=== PATIENT | male | born 1965 | race Caucasian/White ===

== ENCOUNTER 2022-02-28 16:05 | Emergency (ER) | payer OTHER, SELFPAY ==
--- NOTE | ~2022-02-28 | XR_ITS ---
EXAMINATION: XR SHOULDER, LEFT CLINICAL INFORMATION: Pain COMPARISON: None TECHNIQUE: Three views of the left shoulder. FINDINGS: There is mild acromioclavicular and glenohumeral osteoarthritis. No fracture. Alignment is anatomic. Soft tissues are normal with no abnormal calcifications. XR/XR shoulder LT min 2V IMPRESSION: Mild degenerative changes of the shoulder.
--- NOTE | ~2022-02-28 | XR_ITS ---
EXAMINATION: XR chest 1V CLINICAL INFORMATION: Reason for Exam dyspnea COMPARISON: None TECHNIQUE: One view of the chest FINDINGS: Low lung volumes with bronchovascular crowding. No focal consolidation. No pneumothorax or pleural effusion. Normal cardiomediastinal silhouette. XR/XR chest 1V Impression: * Low lung volumes with bronchovascular crowding. No focal consolidation.
[2022-02-28 16:30] VITALS: BP 140/90; PULSE 96; O2SAT 99; BMI 24.2
[2022-02-28 16:59] VITALS: BP 119/80; PULSE 102; RESP 18; TEMP 36.7; O2SAT 98
--- NOTE | 2022-02-28 17:00 | ED.EXTPRO ---
HPI - Extremity Problem General Chief complaint: Extremity Injury, Upper Stated complaint: L Shoulder pain Time Seen by Provider: 02/28/22 16:19 Source: patient and EMS Mode of arrival: EMS Limitations: other (very poor historian) History of Present Illness HPI Narrative: 56 yo male very poor historian most history gathered from the medications he is on and small bits of information he provided but appears to have a history of paraplegia from a fall a few years ago - chest down, chronic garcia, CVA with ?L sided deficits - garbled speech, hard of hearing, pressure ulcers, HTN, HLD, chronic pain issues he reports suboxone doesn't work for him, intermittent UTIs most recently states he is on some antibiotic for 5 days from either [facility] or [facility] (garcia changed then), on eliquis but he isn't sure why called 911 today because he cannot care for himself anymore and he has chronic L shoulder pain x 4 months. EMS note they get called to his house a lot and his sister who used to care for him recently had a massive stroke and she is no longer able to care for him. Patient states he wants to go to a nursing agusto and does not want to go home again. MD Complaint: extremity pain Onset (ago): month(s) (4) Pain Consistency: constant Location: left and upper extremity (shoulder) Quality: aching, dull and constant Radiation: none Relieving factors: immobilization Exacerbating factors: range of motion and palpation Associated symptoms: denies other symptoms Context: other (cannot tell me if he injured it states it just hurts then tells me something happened at [facility] ) Related Data Allergies Allergy/AdvReac Type Severity Reaction Status Date / Time No Known Allergies Allergy Verified 02/28/22 16:54 Review of Systems Review of Systems: Constitutional : no Fever, No Chills, No Fatigue, No Malaise ENT/Mouth : No sore throat, No Rhinorrhea Eyes: No Eye Pain, No Swelling, No Redness Cardiovascular : No Chest Pain, No SOB, No Dyspnea on Exertion, No Orthopnea, No Edema, No Palpitations Respiratory : No Cough, No Sputum, No Wheezing Gastrointestinal : No Nausea, No Vomiting, No Diarrhea, No Constipation, No abdominal Pain, No Hematochezia, No Melena Genitourinary : No Dysuria, No Urinary Frequency, No Hematuria, Musculoskeletal : pos joint pain, No Myalgias, No Joint Swelling Skin : No Skin Lesions, No rash Neuro : No Weakness, No Numbness, No Dizziness, No Headache Psych : No Anxiety/Panic, No Depression Heme/Lymph: No Bruising, No Bleeding,No Lymphadenopathy Endocrine : No Polyuria, No Polydipsia All other systems reviewed and are negative [facility] Past Medical History Source: old records reviewed Medical History Acute CVA (cerebrovascular accident) Anticoagulated Asthma Chronic indwelling Garcia catheter Chronic pain CVA (cerebral vascular accident) Enterococcus faecalis infection HTN (hypertension) Hyperlipidemia Paraplegia Pulmonary embolism Sacral ulcer Social History Social History Advance Directives: No Advance Directives Information Provided: No Physical Exam Vital Signs: Vital Signs: Last Vital Signs Temp 97.6 F 02/28/22 19:58 Pulse 107 H 03/01/22 00:00 Resp 20 03/01/22 00:00 BP 118/85 03/01/22 00:00 Pulse Ox 97 03/01/22 00:00 O2 Del Method 03/01/22 00:00 BMI result Body Mass Index 24.2 Appearance: Alert. Oriented X3. No acute distress. Hard of hearing Eyes: Pupils equal, round and reactive to light. ENT: Pharynx dry MM - mild Neck: Normal inspection. Neck supple. CVS: Normal heart rate and rhythm. Pulses normal. Respiratory: No respiratory distress. Breath sounds diminished at bases. Abdomen: Soft and non-tender. Garcia in place states it is 5 days old appears clean Back: please see picture below for shallow uninfected sacral ulcer Skin: Skin warm and dry. pale skin color. Normal skin turgor. Extremities: No lower extremity edema. has ulcer on left heel and left francisco please see pictures below Neuro: Oriented X 3. Very poor historian. very hard of hearing, speech garbled at times, contracted legs, paraplegic chest down, L shoulder reports pain no obvious deformity noted, hand is contracted states he has a prior stroke Course Course Course Narrative: admitted to [facility] for shoulder pain leg wounds dyspnea 02/20 - 02/25 found to have trace pericardial effusion leg wounds - completed 7 day course of daptomycin for prior VRE wound infection tachycardia - ECHO done EF 40% but no further interventions needed put back on DOAC trace trivial pericardial effusion no GWMA tachycardia attributed to pain in L shoulder - not felt to be osteo after workup including MRI of cspine area chronic inflammation Jose DC home on 02/25 with outpatient follow up completed therapies while in hospital has VNA at home Dyspnea felt to be underlying COPD. no acute findings on xrays or labs Patient placed in physician observation at 628pm The indication for observation is that the patient needs more time for CM to aid in placement, did refuse at [facility] yesterday for placement. At this time the patient is currently medically cleared, lungs clear, CV RRR, abd nontender, neuro at baseline. MDM - Extremity (Nontraumatic) MDM Narrative Medical decision making narrative: 56 yo male with hx of parapelgia, PE on eliquis, chronic pain, chronic wounds with hx of VRE, chronic garcia in place, L shoulder pain recently admitted to [facility] 02/20-02/25 seen for dyspnea/elevated troponin with negative workup including ECHO and L shoulder pain felt to be MSK in nature. Completed 7 day course of daptomycin for prior VRE culture of wounds. He has new garcia in place. His wounds do not appear infected today we placed new coverings on them. His main complaint today again is that he has chronic shoulder pain - xrays and labs ordered. PO oxycodone for pain. He also wants to go to a SNF. Once medically cleared will refer to CM. Lab Data Result diagrams: 02/28/22 17:56 02/28/22 17:56 Labs: Lab Results 02/28/22 02/28/22 02/28/22 Range/Units 17:56 17:56 17:56 WBC 9.1 (4.8-10.8) X10*3/uL RBC 4.16 L (4.60-5.80) X10*6/uL Hgb 10.3 L (14.0-18.0) g/dl Hct 32.8 L (42.0-52.0) % MCV 78.8 L (80.0-98.0) fL MCH 24.8 L (27.0-33.0) pg MCHC 31.4 (31.0-36.0) g/dl RDW 18.5 H (11.0-16.0) % Plt Count 397 (160-400) X10*3/uL MPV 9.6 (9.4-12.4) fL Immature Gran % (Auto) 0.6 H (0.0-0.4) % Neut % (Auto) 59.5 (45-73) % Lymph % (Auto) 18.6 L (20-40) % Forrest % (Auto) 12.1 H (2-11) % Eos % (Auto) 8.4 H (0-4) % Baso % (Auto) 0.8 (0-2) % Lymph # (Auto) 1.7 (1.2-4.9) X10*3/uL Forrest # (Auto) 1.1 (0.1-1.2) X10*3/uL Eos # (Auto) 0.8 H (0.0-0.4) X10*3/uL Baso # (Auto) 0.1 (0.0-0.2) X10*3/uL Abs Immat Gran (auto) 0.05 H (0.00-0.03) X10*3/uL Absolute Neuts (auto) 5.4 (2.0-8.3) x10*3/uL Absolute Nucleated RBC 0.000 (0.0-0.012) X10*3/uL Nucleated RBC % (auto) 0.0 (0.0-0.2) /100WBC PT 14.1 H (10.0-13.1) SEC INR 1.2 H (0.9-1.1) Sodium 139 (135-145) mmol/L Potassium 3.8 (3.3-5.1) mmol/L Chloride 107 (96-108) mmol/L Carbon Dioxide 21 L (22-29) mmol/L Anion Gap 15 (12-20) BUN 19 H (9-16) mg/dL Creatinine 0.73 (0.5-1.4) mg/dL Estim Creat Clear Calc 104.3 Estimated GFR > 60 Random Glucose 109 (60-115) mg/dL Calcium 9.2 (8.4-10.2) mg/dL Magnesium 2.1 (1.6-2.6) mg/dL Total Bilirubin 0.5 (0.0-1.0) mg/dL Direct Bilirubin 0.2 (0.0-0.5) mg/dL AST 12 (5-37) U/L ALT 9 (0-40) U/L Alkaline Phosphatase 99 (39-117) U/L Total Protein 8.4 H (6.5-8.0) g/dL Albumin 4.0 (3.5-5.0) g/dL Urine Opiates Screen (Not Detect) Urine Fentanyl Screen (Not Detect) Ur Barbiturates Screen (Not Detect) Ur Phencyclidine Scrn (Not Detect) Ur Amphetamines Screen (Not Detect) U Benzodiazepines Scrn (Not Detect) Urine Cocaine Screen (Not Detect) U Marijuana (THC) Screen (Not Detect) COVID-19 (LYLY) (Negative) COVID-19 Clin Com 02/28/22 02/28/22 Range/Units 17:56 18:00 WBC (4.8-10.8) X10*3/uL RBC (4.60-5.80) X10*6/uL Hgb (14.0-18.0) g/dl Hct (42.0-52.0) % MCV (80.0-98.0) fL MCH (27.0-33.0) pg MCHC (31.0-36.0) g/dl RDW (11.0-16.0) % Plt Count (160-400) X10*3/uL MPV (9.4-12.4) fL Immature Gran % (Auto) (0.0-0.4) % Neut % (Auto) (45-73) % Lymph % (Auto) (20-40) % Forrest % (Auto) (2-11) % Eos % (Auto) (0-4) % Baso % (Auto) (0-2) % Lymph # (Auto) (1.2-4.9) X10*3/uL Forrest # (Auto) (0.1-1.2) X10*3/uL Eos # (Auto) (0.0-0.4) X10*3/uL Baso # (Auto) (0.0-0.2) X10*3/uL Abs Immat Gran (auto) (0.00-0.03) X10*3/uL Absolute Neuts (auto) (2.0-8.3) x10*3/uL Absolute Nucleated RBC (0.0-0.012) X10*3/uL Nucleated RBC % (auto) (0.0-0.2) /100WBC PT (10.0-13.1) SEC INR (0.9-1.1) Sodium (135-145) mmol/L Potassium (3.3-5.1) mmol/L Chloride (96-108) mmol/L Carbon Dioxide (22-29) mmol/L Anion Gap (12-20) BUN (9-16) mg/dL Creatinine (0.5-1.4) mg/dL Estim Creat Clear Calc Estimated GFR Random Glucose (60-115) mg/dL Calcium (8.4-10.2) mg/dL Magnesium (1.6-2.6) mg/dL Total Bilirubin (0.0-1.0) mg/dL Direct Bilirubin (0.0-0.5) mg/dL AST (5-37) U/L ALT (0-40) U/L Alkaline Phosphatase (39-117) U/L Total Protein (6.5-8.0) g/dL Albumin (3.5-5.0) g/dL Urine Opiates Screen Not Detected (Not Detect) Urine Fentanyl Screen Not Detected (Not Detect) Ur Barbiturates Screen Not Detected (Not Detect) Ur Phencyclidine Scrn Not Detected (Not Detect) Ur Amphetamines Screen Not Detected (Not Detect) U Benzodiazepines Scrn Not Detected (Not Detect) Urine Cocaine Screen Not Detected (Not Detect) U Marijuana (THC) Screen Not Detected (Not Detect) COVID-19 (LYLY) Negative (Negative) COVID-19 Clin Com See Note ECG Data Attestation EKG: I personally reviewed and interpreted this ECG as follows: ECG interpretation date: 02/28/22 ECG interpretation time: 17:44 Interpretation: Rate:98 Rhythm: NSR Edmond: normal Normal P waves. Normal JONAS. Normal QRS complex. ST T wave : normal no PEARL qTC: normal prior studies: no acute ischemia The study has been interpreted contemporaneously by me. Discharge Plan Discharge Clinical Impression: Left shoulder pain Qualifiers: Chronicity: chronic Qualified Code(s): M25.512 - Pain in left shoulder Patient Disposition: Still a Patient
--- NOTE | 2022-02-28 17:11 | PC.NURSE ---
Pt.'s linens changed and wounds examined with EVARISTO June and Kasey Longoria MD. Bed sores/pressure wounds noted to coccyx, left francisco and posterior medial right heel. Dressings applied to all three wounds.
--- NOTE | 2022-02-28 17:15 | ECG_ITS ---
Test Reason : LEFT SIDED SHOULDER PAIN Blood Pressure : / mmHG Vent. Rate : 098 BPM Atrial Rate : 098 BPM P-R Int : 148 ms QRS Dur : 082 ms QT Int : 356 ms P-R-T Axes : 081 018 017 degrees QTc Int : 454 ms Normal sinus rhythm Normal ECG When compared with ECG of 25-OCT-2001 15:26, Nonspecific T wave abnormality now evident in Anterior leads Referred By: Jaclyn Longoria Electronically Signed By:Javier Wade
[2022-02-28 18:00] VITALS: BP 140/90; PULSE 98; RESP 14; O2SAT 100
[2022-02-28 18:00] LABS: MANUAL DIFF FLAG NO
[2022-02-28 18:03] LABS: Basophils Absolute Auto 0.1 X10*3/uL (0.0-0.2); Basophils Percent Auto 0.8 % (0-2); Eosinophils Absolute Auto 0.8 X10*3/uL (0.0-0.4); Eosinophils Percent Auto 8.4 % (0-4); Hematocrit 32.8 % (42.0-52.0); Hemoglobin 10.3 g/dl (14.0-18.0); Imm Gran Abs Auto 0.05 X10*3/uL (0.00-0.03); Imm Gran Pct Auto 0.6 % (0.0-0.4); Lymphocytes Absolute Auto 1.7 X10*3/uL (1.2-4.9); Lymphocytes Percent Auto 18.6 % (20-40); Mean Corpuscular HGB Conc 31.4 g/dl (31.0-36.0); Mean Corpuscular Hemoglobin 24.8 pg (27.0-33.0); Mean Corpuscular Volume 78.8 fL (80.0-98.0); Mean Platelet Volume 9.6 fL (9.4-12.4); Monocytes Absolute Auto 1.1 X10*3/uL (0.1-1.2); Monocytes Percent Auto 12.1 % (2-11); Neutrophils Absolute Auto 5.4 x10*3/uL (2.0-8.3); Neutrophils Percent Auto 59.5 % (45-73); Platelet Count 397 X10*3/uL (160-400); Red Blood Count 4.16 X10*6/uL (4.60-5.80); Red Cell Distribution Width 18.5 % (11.0-16.0); White Blood Count 9.1 X10*3/uL (4.8-10.8)
[2022-02-28 18:11] LABS: INTERNATIONAL NORM RATIO 1.2 (0.9-1.1); Prothrombin Time 14.1 SEC (10.0-13.1)
[2022-02-28 18:18] LABS: COVID-19 Test Negative (Negative)
[2022-02-28 18:25] LABS: Alanine Aminotransferase 9 U/L (0-40); Alkaline Phosphatase 99 U/L (39-117); Anion Gap 15 (12-20); Aspartate Amino Transferase 12 U/L (5-37); Bilirubin Direct 0.2 mg/dL (0.0-0.5); Bilirubin Total 0.5 mg/dL (0.0-1.0); Blood Urea Nitrogen 19 mg/dL (9-16); Calcium 9.2 mg/dL (8.4-10.2); Carbon Dioxide 21 mmol/L (22-29); Chloride 107 mmol/L (96-108); Creatinine Clr Calc Pharmacy 104.3; Estimated Glomerular Filt Rate > 60; Glucose Random 109 mg/dL (60-115); Magnesium 2.1 mg/dL (1.6-2.6); Potassium 3.8 mmol/L (3.3-5.1); Sodium 139 mmol/L (135-145); Total Protein 8.4 g/dL (6.5-8.0)
[2022-02-28 18:26] LABS: Amphetamine Screen Urine Not Detected (Not Detect); Barbiturates, Urine Not Detected (Not Detect); Benzodiazepines Screen Urine Not Detected (Not Detect); Cannabinoid Screen Urine Not Detected (Not Detect); Cocaine Screen Urine Not Detected (Not Detect); Fentanyl, urine Not Detected (Not Detect); Opiate Screen Urine Not Detected (Not Detect); Phencyclidine Screen Urine Not Detected (Not Detect)
[2022-02-28] MEDS: oxyCODONE HCl Immed Release 5 MG TABLET PO (19:08)
[2022-02-28 19:58] VITALS: BP 128/84; PULSE 99; RESP 18; TEMP 36.4; O2SAT 96
--- NOTE | 2022-02-28 23:19 | PC.NURSE ---
pt complains of R shoulder and reports pain level of 10; explained to pt that he was not due for pain medication as he was given it at around 1900 per OCT, pt was offered tylenol and he refused
[2022-03-01] VITALS: BP 118/85; PULSE 107; RESP 20; O2SAT 97
[2022-03-01] MEDS: oxyCODONE HCl Immed Release 5 MG TABLET PO ×3 (01:09→12:23)
--- NOTE | 2022-03-01 01:13 | PC.NURSE ---
administered oxycodone 5 mg PRN medication for shoulder pain rated at a level of 10 for pain reported by pt
[2022-03-01 06:00] VITALS: BP 123/66; PULSE 110; RESP 18; O2SAT 96
--- NOTE | 2022-03-01 06:49 | PC.NURSE ---
administered oxycodone PRN per OCT, pt states being in constant pain only getting little relief from PRN meds
--- NOTE | 2022-03-01 07:48 | PC.NURSE ---
Patient is in bed awake and eating breakfast.
[2022-03-01 09:33] VITALS: BP 116/76; PULSE 110; RESP 16; TEMP 36.9; O2SAT 95
--- NOTE | 2022-03-01 10:19 | PHA.MEDREC ---
Pharmacy Consult ? Medication Reconciliation Pharmacy has completed the medication reconciliation. Utilized list from last hospital stay at [facility] (02/25) and claim history as pt is not a good historian per note
--- NOTE | 2022-03-01 11:58 | MHC.CM.ED ---
Received case management consult overnight. Patient came to the ER due to shoulder pain. Patient found to have multiple wounds and require possible STR placement for management. Attempted to meet with patient in regards to discharge planning. Patient was slow to respond. Patient has a history of being paraplegic. Wheelchair bound at baseline. Patient lives alone. Patient received 1st Moderna vaccine on 02/03/2022. Patient's sister, Vickie helps him but she hasn't been able to help lately. Patient having a difficult time hearing T/W. T/W attempted to speak to patient about placement. Patient unable to follow conversation. Attempted to reach patient's sig other, Genevieve, via telephone at [phone].Telephone number is out of order. T/W is attempting to obtain copy of HCP from [facility] and [facility]. At this time, referral is being broadcasted in [facility]. Continue to monitor for d/c needs.
[2022-03-01] MEDS: Ascorbic Acid 500 MG TABLET PO ×2 (12:20→23:09)
[2022-03-01] MEDS: Multivitamin TABLET 1 TAB PO (12:20)
[2022-03-01] MEDS: Folic Acid 1 MG TABLET PO (12:21)
[2022-03-01] MEDS: Apixaban 5 MG TABLET PO ×2 (12:23→23:09)
[2022-03-01] MEDS: Aspirin Enteric Coated 81 MG TABLET.DR PO (12:23)
[2022-03-01] MEDS: Zinc Sulfate 220 MG CAPSULE PO (12:23)
[2022-03-01] MEDS: Gabapentin 600 MG TABLET PO ×3 (12:23→23:10)
[2022-03-01] MEDS: polyethylene glycoL 3350 17 GM POWD.PACK PO ×2 (12:24→23:10)
[2022-03-01 14:00] VITALS: BP 114/80; PULSE 101; RESP 14
--- NOTE | 2022-03-01 14:12 | PC.NURSE ---
emptied 800 ml of urine from catheter bag. sg
[2022-03-01] MEDS: Collagenase Clostridium Hist. 30 GM TUBE 1 APPL TOPICAL (14:47)
--- NOTE | 2022-03-01 14:50 | PC.NURSE ---
Dressing change to right heel and sacrum. Notable drainage on both wounds.
--- NOTE | 2022-03-01 16:07 | PC.NURSE ---
[facility] CALLED TO LOCATE PT. I CONFIRMED THAT HE IS HERE AND WILL AWAIT PT PERMISSION FOR FURTHER INFORMATION REGARDING HIS CARE, [phone]
[2022-03-01] MEDS: Atorvastatin Calcium 40 MG TABLET PO (23:09)
[2022-03-01] MEDS: Tamsulosin HCL 0.4 MG CAPSULE PO (23:09)
[2022-03-01] MEDS: Sennosides 8.6 MG TABLET 17.2 MG PO (23:09)
[2022-03-02] VITALS (10 sets, daily range): BP systolic 104–123; BP diastolic 73–84; PULSE 78–121; RESP 14–19; TEMP 36.2–36.6; O2SAT 95–100
[2022-03-02] MEDS: oxyCODONE HCl Immed Release 5 MG TABLET PO ×2 (05:21→17:01)
--- NOTE | 2022-03-02 09:37 | MHC.CM.ED ---
Addendum entered by Toya Brunson 03/02/22 13:27: No bed offers made within 20 miles of patient's home. Referral broadcasted within 50 miles. Original Note: Patient remains in the ER. Patient received J&J vaccine 12/26/20 and a Pfizer booster on 02/03/22. Physicla therapy eval completed and feels LTC will be needed. [facility] to all facilities within 20 miles of patient's home that are contracted with [facility]. Continue to monitor for d/c neds.
[2022-03-02] MEDS: Aspirin Enteric Coated 81 MG TABLET.DR PO (10:28)
[2022-03-02] MEDS: Multivitamin TABLET 1 TAB PO (10:29)
[2022-03-02] MEDS: Zinc Sulfate 220 MG CAPSULE PO (10:29)
[2022-03-02] MEDS: Ascorbic Acid 500 MG TABLET PO ×2 (10:29→21:41)
[2022-03-02] MEDS: Collagenase Clostridium Hist. 30 GM TUBE 1 APPL TOPICAL (10:30)
[2022-03-02] MEDS: Gabapentin 600 MG TABLET PO ×3 (10:30→21:41)
[2022-03-02] MEDS: Apixaban 5 MG TABLET PO ×2 (10:30→21:41)
[2022-03-02] MEDS: polyethylene glycoL 3350 17 GM POWD.PACK PO (10:30)
[2022-03-02] MEDS: Folic Acid 1 MG TABLET PO (10:30)
--- NOTE | 2022-03-02 15:46 | PC.NURSE ---
Patients dressings to coccyx and left heal changed . Coccyx cleansed with normal saline then applied Santyl to area and covered with a allevyn dressing . Wound is unstagable with eschar , scant amount of yellow drainage noted . Wound on left heal was cleansed with noraml saline . Covered with Allevyn dressing . Wound is unstagable with moderate amount of yellow discharge noted . Right francisco has area that is red , non blanching , breakdown that was covered with Allvyn dressing . patient tolerated well .
[2022-03-02] MEDS: Sennosides 8.6 MG TABLET 17.2 MG PO (21:40)
[2022-03-02] MEDS: Tamsulosin HCL 0.4 MG CAPSULE PO (21:41)
[2022-03-02] MEDS: Atorvastatin Calcium 40 MG TABLET PO (21:41)
[2022-03-03] MEDS: oxyCODONE HCl Immed Release 5 MG TABLET PO ×2 (05:17→12:01)
--- NOTE | 2022-03-03 05:19 | PC.NURSE ---
Pt. woke up c/o shoulder pain. Pt. was medicated with PRN oxy per the OCT. Pt. repositioned from the right side onto his back. Pt. dressing on right heel had fallen off. A new dressing was placed on the right heel. Pt. now resting comfortably. Continue to monitor.
[2022-03-03 07:13] VITALS: BP 120/80; PULSE 105; RESP 16; O2SAT 97
[2022-03-03 09:14] VITALS: BP 114/81; PULSE 107; TEMP 36.7; O2SAT 97
[2022-03-03] MEDS: Zinc Sulfate 220 MG CAPSULE PO (09:18)
[2022-03-03] MEDS: Gabapentin 600 MG TABLET PO ×3 (09:18→20:24)
[2022-03-03] MEDS: Multivitamin TABLET 1 TAB PO (09:18)
[2022-03-03] MEDS: Apixaban 5 MG TABLET PO ×2 (09:18→20:22)
[2022-03-03] MEDS: Folic Acid 1 MG TABLET PO (09:18)
[2022-03-03] MEDS: Aspirin Enteric Coated 81 MG TABLET.DR PO (09:18)
[2022-03-03] MEDS: Ascorbic Acid 500 MG TABLET PO ×2 (09:18→20:22)
[2022-03-03] MEDS: Collagenase Clostridium Hist. 30 GM TUBE 1 APPL TOPICAL (09:20)
[2022-03-03 11:37] VITALS: BP 116/72; PULSE 110; RESP 16; TEMP 36.6; O2SAT 98
--- NOTE | 2022-03-03 12:51 | MHC.CM.ED ---
Patient currently in ER overflow. [facility] and [facility] are able to offer a bed. Met with patient in regards to discharge planning. Patient accepts bed at [facility]. [facility] PASRR Level 1 screen completed and sent to [facility] at their request. [facility] has been asked to obtain insurance auth. Continue to monitor for d/c needs.
[2022-03-03 15:41] VITALS: BP 112/73; PULSE 122; RESP 16; O2SAT 98
--- NOTE | 2022-03-03 19:24 | PC.NURSE ---
Addendum entered by Mayte Trinidad 03/04/22 07:01: report given to EVARISTO Lane Addendum entered by Mayte Trinidad 03/03/22 20:24: pt is alert and oriented. resting in bed. no signs of acute distress notice. breathing equally unlabored. Ledesma intact. Original Note: report received from EVARISTO Abdullahi and Earlene
[2022-03-03 19:46] VITALS: BP 135/78; PULSE 123; RESP 17; TEMP 36.6; O2SAT 97
[2022-03-03] MEDS: Tamsulosin HCL 0.4 MG CAPSULE PO (20:22)
[2022-03-03] MEDS: Atorvastatin Calcium 40 MG TABLET PO (20:24)
[2022-03-04 06:00] VITALS: BP 120/77; PULSE 115; RESP 20; TEMP 36.4; O2SAT 95
[2022-03-04 08:25] VITALS: BP 97/69; PULSE 112; RESP 14; O2SAT 98
[2022-03-04] MEDS: Apixaban 5 MG TABLET PO (08:59)
[2022-03-04] MEDS: Ascorbic Acid 500 MG TABLET PO (08:59)
[2022-03-04] MEDS: Zinc Sulfate 220 MG CAPSULE PO (08:59)
[2022-03-04] MEDS: Aspirin Enteric Coated 81 MG TABLET.DR PO (08:59)
[2022-03-04] MEDS: Gabapentin 600 MG TABLET PO (08:59)
[2022-03-04] MEDS: Folic Acid 1 MG TABLET PO (08:59)
[2022-03-04] MEDS: Multivitamin TABLET 1 TAB PO (08:59)
[2022-03-04] MEDS: Collagenase Clostridium Hist. 30 GM TUBE 1 APPL TOPICAL (09:00)
[2022-03-04 10:40] LABS: COVID-19 Test Negative (Negative); IDNOW Serial# 55D5AD1C
[2022-03-04 12:13] VITALS: BP 139/74; PULSE 120; RESP 17; TEMP 36.8; O2SAT 97
--- NOTE | 2022-03-04 15:11 | PC.NURSE ---
Discharge instructions along with prescription given to EMS. Instructed to give to receiving facility.
== END 2022-03-04 15:12 | disposition skilled nursing facility (03) ==
PROVIDERS: Physician Assistant; Emergency Provider Emergency Medicine; PCP Physician Assistant Medical
DX: M25.512 Pain in left shoulder (principal); G89.29 Other chronic pain; R06.02 Shortness of breath; Z20.822 Contact with and (suspected) exposure to COVID-19; Z79.4 Long term (current) use of insulin; Z79.899 Other long term (current) drug therapy
CPT/HCPCS: 71045; 73030; 80048; 80076; 80307; 83735; 85025; 85610; 87635; 93005; 97162; 99285